=== PATIENT | female | born 1990 | race Caucasian/White ===

== ENCOUNTER 2017-05-16 02:20 | Emergency (ER) | payer OTHER ==
[~2017-05-16] VITALS: Ht 162.6 cm; Wt 68.0 kg
[~2017-05-16 02:20] MED LIST: APAP500 PO; DEPO-PROVERA; DERMOPLAST SPRA56 ML; FAMOTIDINE 20 M20 MG PO; IBUPROFEN 800800 M1 PO; KEFLEX500 MG PO; LANOLIN56 GM; NORCO 5-325 TA1 EACH PO; PRENATAL MULTI1 EAC2 PO; TUCKS MEDICATE1 EAC1; VICODIN 5-5001 EACH PO
[2017-05-16 04:01] VITALS: BP 105/65
== END 2017-05-16 04:01 | disposition home or self-care (01) ==
LOC: ER 02:20
DX: S09.90XA Unspecified injury of head, initial encounter (principal); F10.120 Alcohol abuse with intoxication, uncomplicated; F17.210 Nicotine dependence, cigarettes, uncomplicated; Z88.6 Allergy status to analgesic agent; X58.XXXA Exposure to other specified factors, initial encounter; Y93.89 Activity, other specified; Y92.89 Other specified places as the place of occurrence of the external cause; Y99.8 Other external cause status